=== PATIENT | male | born 1935 | race Caucasian/White ===

== ENCOUNTER → 2017-05-27 | Outpatient (CLI) | payer OTHER ==
[~2017-05-27] MED LIST: ACET-1138 PO; ALBU0.08 INH; ASPEC81 PO; ASPI-232 PO; CHOL100010 PO; CPR/500 PO; LEVO75TA5 PO; ONDA8TAB6 PO; POTA20TA16 PO; RED600TA PO; RXC5 PO; [UNRECOGNIZED DRUG - OTHER] PO
--- NOTE | 2017-05-27 13:15 | DIAGNOSTIC IMAGING REPORT ---
RIGHT LOWER EXTREMITY WITHOUT CT DOSE: 815.53 mGy.cm HISTORY: CT right hip RIGHT HIP PAIN Right TECHNIQUE: Multiaxial CT images of the right hip were performed and reformatted in the sagittal and coronal plane without the use of contrast. A dose lowering technique was utilized adhering to the principles of ALARA. COMPARISON: None. FINDINGS: Patient is status post total right hip arthroplasty. There is good contact between prosthetic and underlying bone. The acetabular prosthetic is intact. No evidence for cortical fracture dislocation. No evidence for acetabular protrusion. IMPRESSION: 1. Anatomic alignment status post total right hip arthroplasty. 2. No acute bony abnormality. The above report was generated using voice recognition software. It may contain grammatical, syntax or spelling errors. Electronically signed by: Hermelindo Stanford M.D. 05/27/2017 1:14 PM Dictated Date/Time: 05/27/2017 1:08 PM
== END | disposition home or self-care (01) ==
LOC: C.CTS 11:27
PROVIDERS: ATTEND Orthopaedic Surgery
DX: M25.551 Pain in right hip (principal)

== ENCOUNTER 2017-05-28 10:04 | Inpatient (IN) | payer OTHER ==
[2017-05-27 08:52] VITALS: BMI 26.0
--- NOTE | 2017-05-27 08:53 | HISTORY & PHYSICAL EXAMINATION ---
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 He has a valgus alignment with bone to bone changes, large osteophytes and subchondral sclerosis. He has failed attempts at conservative management including physical therapy, anti-inflammatories, relative rest, activity modification, previous corticosteroid injections as well as viscosupplementation. For 82 years old, he is in excellent health otherwise and presents for total knee arthroplasty after failing all attempts at conservative management. After extensive discussion regarding risks, complications, decision was made to proceed forward with total knee arthroplasty. PAST MEDICAL HISTORY: The patient denies history of hypertension, hypercholesterolemia, heart or lung abnormalities. The patient relates no alcohol, no smoking, and no recreational drug use. PAST SURGICAL HISTORY: Significant for total hip arthroplasty, right. ALLERGIES: RELATES ENVIRONMENTAL ALLERGIES WELL ALLERGIES TO XARELTO AND VALIUM. ALLERGIES ARE TO PENICILLIN, THIOPENTAL AND DIAZEPAM. MEDICATIONS: Include levothyroxine 75 mcg half a tablet p.o. daily. REVIEW OF SYSTEMS: Otherwise unremarkable. See history of present illness for pertinent positives. PHYSICAL EXAMINATION: GENERAL: This is a very pleasant 82-year-old white male, alert and oriented x3, in no acute distress. HEENT: Otherwise atraumatic, normocephalic. HEART: Regular at 72 beats per minute. No murmurs are noted. LUNGS: Clear without rales, rhonchi, or wheezes noted. ABDOMEN: Soft, nontender, nondistended. Bowel sounds are present in all 4 quadrants. RECTAL: No rectal examination performed. MUSCULOSKELETAL: He has had a bilateral knee DJD with the right knee being scheduled for total knee arthroplasty, valgus alignment, bone to bone changes, subchondral sclerosis, medial and lateral joint line pain, tenderness, as well as moderate effusion. ASSESSMENT AND PLAN: The patient presents for total knee arthroplasty, postoperative pain management, deep venous thrombosis prophylaxis, antibiotics.
--- NOTE | 2017-05-27 09:45 | PAT Medication Instructions ---
Service Date May 27, 2017. Current Home Medication List Aspirin (Aspirin EC Low Dose), 81 MG PO BID Aspirin (Aspir-81), 1 TAB PO QAM Cholecalciferol (Vitamin D), 2,000 INTERUNIT PO QAM Levothyroxine Sodium (Levothyroxine Sodium), 1 TAB PO SEE NOTES Potassium Ext Rel (Klor-Con), 10 MEQ PO QAM Red Yeast Rice Extract (Red Yeast Rice), 2 TAB PO QAM [Power Green ], 1 DOSE PO UD Medication Instructions For Your Scheduled Surgery - Hold the following medications the morning of surgery: [Power Green ], 1 DOSE PO UD Red Yeast Rice Extract (Red Yeast Rice), 2 TAB PO QAM Potassium Ext Rel (Klor-Con), 10 MEQ PO QAM Cholecalciferol (Vitamin D), 2,000 INTERUNIT PO QAM - Take the following medications the morning of surgery with a sip of water: Aspirin (Aspir-81), 1 TAB PO QAM (okay to continue per surgeon) Levothyroxine Sodium (Levothyroxine Sodium), 1 TAB PO SEE NOTES If you have any questions please call us at [phone] or [phone] or [phone]
[2017-05-27 10:34] LABS: BASO % 0.6 %; BASO ABS # 0.04 K/uL (0-0.2); COMPLETE YES; EOS % 2.7 %; HEMATOCRIT 43.7 % (42-52); IG% 0.2 %; LYMPH % 28.2 %; LYMPH ABS # 1.86 K/uL (1.2-3.4); MEAN CORPUSCULAR HEMOGLOBIN 31.2 pg (25-34); MEAN CORPUSCULAR HGB CONC 33.2 g/dl (32-36); MEAN PLATELET VOLUME 10.9 fL (7.4-10.4); MONO % 11.4 %; NEUT % 56.9 %; PLATELET COUNT 199 K/uL (130-400); RED BLOOD COUNT 4.65 M/uL (4.7-6.1); WHITE BLOOD COUNT 6.59 K/uL (4.8-10.8)
[2017-05-27 10:35] LABS: URINE APPEARANCE CLEAR (CLEAR); URINE BILIRUBIN NEG (NEG); URINE COLOR YELLOW; URINE NITRITE NEG (NEG); URINE SPECIFIC GRAVITY 1.014 (1.000-1.030); UROBILINOGEN NEG (NEG)
[2017-05-27 10:37] LABS: MANUAL MICROSCOPIC REQUIRED? NO; REVIEW REQ? NO
[2017-05-27 10:44] LABS: PROTHROMBIN TIME (PATIENT) 11.2 SECONDS (9.0-12.0)
--- NOTE | 2017-05-27 10:48 | DIAGNOSTIC IMAGING REPORT ---
CHEST PREADMISSION(PA/LAT) CLINICAL HISTORY: PAT preoperative evaluation COMPARISON STUDY: No previous studies for comparison. FINDINGS: The bones soft tissues and hemidiaphragms are normal. The cardiomediastinal silhouette is normal. The lungs are clear. The pulmonary vasculature is normal. IMPRESSION: Negative chest. The above report was generated using voice recognition software. It may contain grammatical, syntax or spelling errors. Electronically signed by: Hermelindo Stanford M.D. 05/27/2017 10:47 AM Dictated Date/Time: 05/27/2017 10:47 AM
[2017-05-27 11:14] LABS: BUN/CREATININE RATIO 19.3 (10-20); CALCIUM 9.1 mg/dl (8.5-10.1); CREATININE 0.84 mg/dl (0.60-1.40); POTASSIUM 3.7 mmol/L (3.5-5.1)
[2017-05-27 11:18] LABS: ESTIMATED AVERAGE GLUCOSE 108 mg/dl; HA1C FLAG Normal (Normal)
[2017-05-28] VITALS (7 sets, daily range): BP systolic 114–134; BP diastolic 66–76; PULSE 64–78; TEMP 36.5–36.8; O2SAT 93–97; Ht 175.3 cm; Wt 82.6 kg
[~2017-05-28] VITALS: Ht 175.3 cm; Wt 82.6 kg
--- NOTE | 2017-05-28 08:08 | History & Physical Bridge Note ---
H&P Re-Evaluation Bridge Note: I have examined the patient, reviewed the History & Physical and in the interval since the performance of the History & Physical I have noted the following changes of clinical significance: No changes noted
[~2017-05-28 10:04] MED LIST changes: -ACET-1138 PO; +ACETAMINOPHEN 500 MG TAB PO SCH; -ALBU0.08 INH; -ASPEC81 PO; +ATROPINE SULFATE 0.1 MG/ML 5ML SYR IV PRN; +BUPIVACAINE 0.25% 30 ML VIAL ONE; +BUPIVACAINE 0.5 % 5 MG/1 ML PF 10ML VIAL ONE; -CPR/500 PO; +CeleBREX 200 MG CAP PO SCH; +DEXAMETHASONE 4 MG TAB PO SCH; +EpHEDrine SULFATE INJ 50 MG/ML AMP IV PRN; +FAMOTIDINE 20 MG TAB PO SCH; +GABAPENTIN 300 MG CAP PO SCH; +LACTATED RINGER'S 1000ML 1,000 ML IV SCH; +LACTATED RINGER'S 1000ML IV SCH; +METOCLOPRAMIDE HCL 10 MG TAB PO SCH; -ONDA8TAB6 PO; +ONDANSETRON INJ 2 MG/ML 2 ML VIAL IV PRN; +ROPIVACAINE 5MG/ML 30 ML 150 MG, BUPIVACAINE/EPINEPHR 0.5% MPF 30 ML, KETOROLAC TROMETH... INFIL SCH; -RXC5 PO; +VANCOMYCIN INJ 1,250 MG in SODIUM CHLORIDE 0.9% 250ML 250 ML IV SCH
[2017-05-28] MEDS ORDERED: FENTANYL CITRATE INJ 50 MCG/1 ML 2 ML VIAL ONE (11:40)
[2017-05-28] MEDS ORDERED: MIDAZOLAM HCL 1 MG/ML 2ML VIAL ONE (11:40)
[2017-05-28] MEDS ORDERED: ORTHO JOINT ANESTHETIC ONE (12:57)
[2017-05-28] MEDS ORDERED: BACITRACIN 50000 UNIT VIAL ONE (12:57)
[2017-05-28] MEDS ORDERED: POVIDONE-IODINE OP SOLN 30 ML BTL ONE (12:57)
[2017-05-28] MEDS ORDERED: PROPOFOL IV EMULSION 10 MG/ML 20 ML VIAL IV ONE (13:33)
--- NOTE | 2017-05-28 14:21 | [facility] Operative Report ---
Operative Report Operative Date May 28, 2017. Pre-Operative Diagnosis Right knee degenerative joint disease Post-Operative Diagnosis Right knee degenerative joint disease Procedure(s) Performed Right total knee arthroplasty using [employer] journey to non-block total knee arthroplasty size 7 femur 7 tibia Poly-[address] Yepez Spiritual Counselor Surgeon(s) Hannah Flores PA-C Estimated Blood Loss 5 mL Findings Severe end-stage tricompartmental degenerative joint disease with valgus alignment Specimens A: right knee bone and tissue Complication(s) None Disposition Recovery Room / PACU Indications Patient presents with severe end-stage tricompartmental degenerative joint disease banal response to conservative therapy Terrance for total knee arthroplasty after failing attempts at conservative management with home patient is amends discussed preoperatively. Description of Procedure After proper prepping and draping of the Right lower extremity anterior midline incision was made over the region of the extensor extensor mechanism after meticulous hemostasis was obtained and maintained in subcutaneous tissues a medial parapatellar incision was made The patella was subluxed lateralward the medial lateral gutter were cleaned from any hypertrophic synovitis and scar tissue of the distal femoral block was placed and the distal femoral osteotomy cut was made subsequently the chamfers anterior and posterior osteotomy cuts were made utilizing the 4-in-1 block the tibia was subsequently subluxed anteriorward medial and ateral meniscal remnants were excised in their entirety remnants of the anterior and posterior cruciate ligaments were excised in their entirety excellent exposure of the proximal tibia was obtained the tibial osteotomy guide was placed on the proximal tibial osteotomy cut was made once again the knee was irrigated with copious amounts of sterile saline solution the patella was subsequently everted lateralward thickened scar tissue around the patella was removed the patella was subsequently cut utilizing a freehand technique and was drilled prepared for final preparation and placement of patella socially flexion-extension gaps were checked and the equal and symmetric trials were placed to the appropriate femoral and tibial trials with poly-spacer being placed for equal flexion and extension gaps and full range of motion including extension to 0 and flexion to 140 the trial components after having been taken to recovery range of motion was subsequently removed meticulous hemostasis was obtained and maintained subsequently a knee block injection of joint cocktail including ropivacaine 0.5% 150 mg. Bupivacaine 0.5 % epinephrine 1-200,030 mL's toradol 30 mg dexamethasone 4 mg ketamine 10 mg clonidine 100 micrograms normal saline solution 30 mg was infiltrated into the soft tissues of the posterior knee medial lateral gutters and periosteal synovium special attention was paid to protect neurovascular structures at all times subsequently trial components having been removed the knee was irrigated with sterile saline solution. debris was removed the proximal tibia was subsequently prepared and was made ready for the placement of the tibial component tibial component was also cemented and tamped into position the femoral component was subsequently placed and cemented in the position the patellar component was subsequently cemented in position because hemostasis once again obtained and maintained wound having been thoroughly irrigated with debridement and debridement lavage was performed as well as a medial parapatellar incision closed with #1 Vicryl in interrupted fashion subcutaneous was closed with #2 Vicryl skin was closed with skin clips. PA-C was necessary for prepping and drapping as well as wound closure of deep fascia Sub cutaneous tissue and skin and was necessary for the case. A sterile compressive dressing was placed patient was taken to recovery in stable condition of report dictated by Lucho I attest to the content of the Intraoperative Record and any orders documented therein. Any exceptions are noted below. I attest to the content of the Intraoperative Record and any orders documented therein. Any exceptions are noted below.
[2017-05-28] MEDS ORDERED: MAGNESIUM HYDROXIDE SUSP 30 ML UDC PO PRN (15:00)
[2017-05-28] MEDS ORDERED: ALUMINUM/MAGNESIUM/SIMETH (MAALOX MAX) 30 ML UDC PO PRN (15:00)
[2017-05-28] MEDS ORDERED: ZOLPIDEM TARTRATE 5 MG TAB PO PRN (15:00)
[2017-05-28] MEDS ORDERED: OXYCODONE HCL IR 5 MG TAB (IMMEDIATE RELEASE) PO PRN (15:00)
[2017-05-28] MEDS ORDERED: ONDANSETRON INJ 2 MG/ML 2 ML VIAL IV PRN (15:00)
[2017-05-28] MEDS ORDERED: SOD PHOSPHATE/SOD BIPHOSPHATE ENEMA 132 ML BTL PR PRN (15:00)
[2017-05-28] MEDS ORDERED: BISACODYL 10 MG SUPP PR PRN (15:00)
--- NOTE | 2017-05-28 15:01 | Anesthesiology Progress Note ---
Anesthesia Post Op Note Date & Time May 28, 2017 at 15:01 Vital Signs Pain Intensity: 0 Vital Signs Past 12 Hours Date Time Temp Pulse Resp B/P (MAP) Pulse Ox O2 Delivery O2 Flow Rate FiO2 05/28/17 15:00 70 18 110/65 96 Nasal Cannula 2 05/28/17 14:51 36.4 75 14 106/63 96 Room Air 05/28/17 10:46 36.8 78 20 96 Room Air Notes Mental Status: alert / awake / arousable, participated in evaluation Pt Amnestic to Procedure: Yes Nausea / Vomiting: adequately controlled Pain: adequately controlled Airway Patency, RR, SpO2: stable & adequate BP & HR: stable & adequate Hydration State: stable & adequate Neuraxial Anesthesia: was administered, sensory block is resolving Anesthetic Complications: no major complications apparent
--- NOTE | 2017-05-28 15:19 | DIAGNOSTIC IMAGING REPORT ---
TWO VIEWS RIGHT KNEE CLINICAL HISTORY: Postoperative examination. FINDINGS: AP and crosstable lateral portable views of the right knee are obtained. A right knee arthroplasty is in near anatomic alignment. There has been undersurface remodeling of the patella. No acute fracture is seen. There are expected postoperative changes around the knee including a surgical drain, soft tissue edema, and subcutaneous gas. Atherosclerotic calcification is noted in the popliteal artery. IMPRESSION: Expected postoperative changes status post right knee arthroplasty. No acute fracture is seen. Electronically signed by: Dallas Guthrie M.D. 05/28/2017 3:17 PM Dictated Date/Time: 05/28/2017 3:17 PM
[2017-05-28] MEDS: D5W AND 1/2NSS + 20MEQ KCL 1,000 ML IV SCH (17:01)
[2017-05-28] MEDS: CLINDAMYCIN IV 600 MG in DEXTROSE 5% 50ML 50 ML IV SCH (18:47)
[2017-05-28] MEDS: KETOROLAC TROMETHAMINE 15 MG/ML VIAL IV. SCH ×2 (18:47→23:54)
[2017-05-28] MEDS: ASPIRIN 81 MG ECTAB PO SCH (21:33)
[2017-05-28] MEDS: ACETAMINOPHEN 500 MG TAB PO SCH (21:33)
[2017-05-28] MEDS: SENNA 8.6 MG TAB PO SCH (21:33)
[2017-05-29] VITALS (8 sets, daily range): BP systolic 127–160; BP diastolic 70–83; PULSE 61–85; TEMP 36.4–37.1; O2SAT 96–99
[2017-05-29] MEDS: D5W AND 1/2NSS + 20MEQ KCL 1,000 ML IV SCH ×2 (02:25→12:19)
[2017-05-29] MEDS: CLINDAMYCIN IV 600 MG in DEXTROSE 5% 50ML 50 ML IV SCH (02:26)
[2017-05-29] MEDS: ACETAMINOPHEN 500 MG TAB PO SCH ×3 (05:43→21:17)
[2017-05-29] MEDS: LEVOTHYROXINE 75 MCG TAB PO SCH (05:43)
[2017-05-29] MEDS: KETOROLAC TROMETHAMINE 15 MG/ML VIAL IV. SCH ×2 (05:43→12:21)
[2017-05-29 06:16] LABS: HEMATOCRIT 36.7 % (42-52); MEAN CELL VOLUME 93.6 fL (80-100); MEAN CORPUSCULAR HEMOGLOBIN 31.1 pg (25-34); MEAN CORPUSCULAR HGB CONC 33.2 g/dl (32-36); MEAN PLATELET VOLUME 10.8 fL (7.4-10.4); PLATELET COUNT 176 K/uL (130-400); RED BLOOD COUNT 3.92 M/uL (4.7-6.1); WHITE BLOOD COUNT 16.67 K/uL (4.8-10.8)
[2017-05-29] MEDS ORDERED: DEXAMETHASONE 4 MG TAB PO SCH (07:30)
[2017-05-29 07:54] LABS: BUN/CREATININE RATIO 17.2 (10-20); CALCIUM 8.6 mg/dl (8.5-10.1); CREATININE 0.85 mg/dl (0.60-1.40); POTASSIUM 4.6 mmol/L (3.5-5.1)
--- NOTE | 2017-05-29 07:56 | Orthopedic Progress Note ---
Orthopedic Progress Note Date of Service May 29, 2017. Subjective Post OP Day: 1 Reports: feeling well, Denies: chest pain, SOB, nausea / vomiting, light headedness, calf pain Additional Notes: Sitting at bedside. No complaints. Pain controlled. Objective calves soft nontender, N/V intact, dressing C/D/I, A&O x3, toes mobile, hemovac drainage (100ml latest shift) Date Time Temp Pulse Resp B/P (MAP) Pulse Ox O2 Delivery O2 Flow Rate FiO2 05/29/17 05:45 97 Room Air 05/29/17 03:10 36.4 63 16 158/77 (104) 99 Nasal Cannula 2.0 05/29/17 00:05 36.4 61 18 160/83 (108) 99 Nasal Cannula 2.0 05/28/17 23:50 Nasal Cannula 2.0 05/28/17 18:58 64 122/72 (89) 05/28/17 17:45 71 134/76 (95) 05/28/17 16:45 68 126/67 (86) 97 Nasal Cannula 2.0 05/28/17 16:15 36.5 68 14 114/66 (82) 97 Nasal Cannula 2.0 05/28/17 16:15 93 Nasal Cannula 2.0 05/28/17 16:10 93 Nasal Cannula 2.0 05/28/17 15:45 36.6 71 14 115/67 (83) 93 Nasal Cannula 2.0 05/28/17 15:40 62 16 100/55 97 Nasal Cannula 2 05/28/17 15:30 64 18 102/59 98 Nasal Cannula 2 05/28/17 15:20 36.4 64 18 101/63 98 Nasal Cannula 2 05/28/17 15:10 65 18 112/63 95 Nasal Cannula 2 05/28/17 15:00 70 18 110/65 96 Nasal Cannula 2 05/28/17 14:51 36.4 75 14 106/63 96 Room Air 05/28/17 10:46 36.8 78 20 96 Room Air Laboratory Results 24 Hours: Test 05/29/17 05:54 Hematocrit 36.7 % Hemoglobin 12.2 g/dL Assessment & Plan Assessment: POD 1 s/p Right TKA Plan: PT/OT Planning for [facility]. Will need a 3 day stay prior to dc. Inhouse Planning Pain Management: Toradol, PO Tylenol, Oxy IR DVT Prophylaxis: TEDs, SCDs, ASA Discharge Planning [facility] facility Pain Management: PO Tylenol, Oxy IR DVT Prophylaxis: TEDs, ASA Therapy: Physical Therapy
[2017-05-29] MEDS: ASPIRIN 81 MG ECTAB PO SCH ×2 (08:40→21:16)
[2017-05-29] MEDS: MULTIVITAMIN TAB PO SCH (08:41)
[2017-05-29] MEDS: PANTOprazole SOD 40 MG TAB PO SCH (08:41)
[2017-05-29] MEDS: POTASSIUM CHLORIDE 10 MEQ TABCR PO SCH (08:41)
[2017-05-29] MEDS: SENNA 8.6 MG TAB PO SCH (21:00)
[2017-05-30] VITALS (7 sets, daily range): BP systolic 128–165; BP diastolic 72–84; PULSE 64–74; TEMP 36.5–37.1; O2SAT 98–100
[2017-05-30] MEDS: LEVOTHYROXINE 75 MCG TAB PO SCH (05:35)
[2017-05-30] MEDS: ACETAMINOPHEN 500 MG TAB PO SCH ×3 (05:36→21:31)
[2017-05-30] MEDS: PANTOprazole SOD 40 MG TAB PO SCH (08:15)
[2017-05-30] MEDS: MULTIVITAMIN TAB PO SCH (08:15)
[2017-05-30] MEDS: POTASSIUM CHLORIDE 10 MEQ TABCR PO SCH (08:15)
[2017-05-30] MEDS: ASPIRIN 81 MG ECTAB PO SCH ×2 (08:59→21:31)
--- NOTE | 2017-05-30 10:11 | Orthopedic Progress Note ---
Orthopedic Progress Note Date of Service May 30, 2017. Subjective Post OP Day: 2 Reports: feeling well, pain controlled w PO medications, Denies: complaints Additional Notes: No new complaints. Objective calves soft nontender, N/V intact, incision C/D/I, A&O x3, toes mobile Date Time Temp Pulse Resp B/P (MAP) Pulse Ox O2 Delivery O2 Flow Rate FiO2 05/30/17 07:58 36.6 70 16 138/78 (98) 98 Room Air 05/30/17 07:42 98 Room Air 05/30/17 07:20 Room Air 05/30/17 07:03 36.5 73 16 165/84 (111) 98 Room Air 05/29/17 23:29 Room Air 05/29/17 23:00 36.6 72 18 127/72 (90) 97 Room Air 05/29/17 15:55 Room Air 05/29/17 15:07 37.1 85 18 137/70 (92) 96 Room Air 05/29/17 12:10 36.5 83 18 141/82 (101) 96 Room Air Assessment & Plan Assessment: POD 2 s/p Right TKA Plan: PT/OT Planning for [facility]. Will need a 3 day stay prior to dc. Plan for dc Saturday Inhouse Planning Pain Management: Toradol, PO Tylenol, Oxy IR DVT Prophylaxis: TEDs, SCDs, ASA Discharge Planning Discharge Planning: halfway facility Pain Management: PO Tylenol, Oxy IR DVT Prophylaxis: TEDs, ASA Therapy: Physical Therapy
--- NOTE | 2017-05-30 10:17 | Discharge Instructions ---
Discharge Instructions Date of Service May 30, 2017. Admission Reason for Admission: Right Knee Osteoarthritis Discharge Discharge Diagnosis / Problem: Right Knee Djd Discharge Goals Goal(s): Decrease discomfort, Improve function Activity Recommendations Activity Level: Up Ad [place] Therapies: Physical Therapy (TKA Protocol), Occupational Therapy (ADL's and transfers) Weightbearing Status: Right weightbearing (as tolerated) . Additional Information Patient informed of condition: Yes Advance Directives: No DNR: No Level of Care: Skilled Communicable Disease: No Prognosis: Stable Boo Catheter: No Instructions / Follow-Up Instructions / Follow-Up ACTIVITY RECOMMENDATIONS: SELF CARE INSTRUCTIONS AFTER TOTAL KNEE REPLACEMENT A. You may need to continue a physical therapy program after discharge from the hospital. There are several options available to you. Your doctor will assist you in selecting the best one for you. 1. An out-patient facility 2 to 3 times a week for therapy or home therapy. 2. Continue working on all exercises taught to you in the hospital. Your goals should be to increase bending of your knee to 90 degrees and beyond and to fully straighten your knee. B. You may progress at your own pace from walking with a walker or crutches to a cane; then to no assistive devices. C. Make walking a part of your daily routine. Be up as much as comfortable with rest periods throughout the day. Rest with leg elevation is very important. Use the ice wrap frequently for the first 3-4 weeks. D. There are no restrictions on activities. You may ride in a car, shop, participate in welder plastic and all social activities. E. Wear the long elastic stockings (JOJO hose) 20 hours a day for 2 weeks after surgery. They can be removed several times a day for laundering and for a bath. F. You may shower, no tub baths until cleared by your doctor. SPECIAL CARE INSTRUCTIONS: VERY IMPORTANT TO READ AND REVIEW A. There are a few signs you need to watch for after you are home. Call [facility] [place] if you notice any of the followin. Increased severe knee pain. Some pain is expected especially when you exercise. 2. Increased swelling in your leg or knee; pain or swelling of the calf muscle in either lower leg. 3. Any fluid drainage from the incision. 4. Shortness of breath or chest pain. B. Please call [facility] at if you have any concerns or questions about your operation or recovery. The doctor or his nurse will return your call promptly. C. You must take antibiotics before dental work, bladder, bowel or other surgery. Your doctor will provide you with a permanent care to carry describing this precaution. IMPORTANT: * REMEMBER TO TAKE ASPIRIN, 81 MG, TWICE DAILY FOR 4 WEEKS UNLESS OTHERWISE DIRECTED. THIS IS YOUR BLOOD THINNER. * HIGH RISK PATIENTS MAY BE PRESCRIBED A STRONGER BLOOD THINNER. THIS WILL BE PROVIDED AT DISCHARGE. * CALL IF INCREASED PAIN, REDNESS, DRAINAGE OR FEVER GREATER THAT 101. * WEAR JOJO HOSE 20 HOURS PER DAY FOR 2 WEEKS. * DERMABOND Prineo- This is a mesh tape dressing that is covered with glue. It should remain in place until the incision is properly healed, usually 10-14 days. This dressing is designed to naturally slough off. You may trim the excess mesh tape as it peels off. Incision may be briefly wet in a shower. Dry immediately by blotting with a clean, dry towel. Do not bath or swim until instructed by your doctor. Do not scratch, rub, or pick at the dressing. Do not apply any topical ointments or lotions until dressing is completely removed and/or instructed by your doctor. There may be a small piece of suture material at one end of your incision. Do not pull or trim this. If it is bothersome or catching on clothing, you may cover it with a band-aid. . FOLLOW UP VISIT: If appointment is not already scheduled: Please call [facility] [place] to make a follow-up appointment for 2 weeks after your surgery at . Current Hospital Diet Patient's current hospital diet: Regular Diet Discharge Diet Recommended Diet: Regular Diet Procedures Procedures Performed: Right total knee arthroplasty using AdSpar[employer] journey to non-block total knee arthroplasty size 7 femur 7 tibia Poly-32 oval patella Pending Studies Studies pending at discharge: no Physician Orders On Transfer Dressing Changes: Daily prn. See Dermabond/Prineo instructions as noted above Vital Signs: routine Laboratory Results Hemoglobin A1c Test 05/27/17 10:07 Range/Units Estimated Average Glucose 108 mg/dl Hemoglobin A1c 5.4 4.5-5.6 % Medical Emergencies . Who to Call and When: Medical Emergencies: If at any time you feel your situation is an emergency, please call 911 immediately. . Non-Emergent Contact Non-Emergency issues call your: Surgeon Call Non-Emergent contact if: temperature is above 101.5, your pain is not controlled, your pain is worsening, wound has increased drainage, wound has increased redness . . "Provider Documentation" section prepared by Dany Resendez. . Core Measure Problem Core Measures: None [place] Drug Monitoring Program Search Results: patient reviewed within database, no issues identified
[2017-05-30] MEDS: SENNA 8.6 MG TAB PO SCH ×2 (21:00→21:31)
[2017-05-31] MEDS: LEVOTHYROXINE 75 MCG TAB PO SCH (05:58)
[2017-05-31] MEDS: ACETAMINOPHEN 500 MG TAB PO SCH (05:59)
[2017-05-31 06:22] VITALS: BP 158/78; PULSE 75; TEMP 37.2; O2SAT 97
[2017-05-31] MEDS: ASPIRIN 81 MG ECTAB PO SCH (07:47)
[2017-05-31] MEDS: MULTIVITAMIN TAB PO SCH (07:47)
[2017-05-31] MEDS: POTASSIUM CHLORIDE 10 MEQ TABCR PO SCH (07:47)
[2017-05-31] MEDS: PANTOprazole SOD 40 MG TAB PO SCH (07:47)
[2017-05-31 08:51] VITALS: BP 158/78; PULSE 75; TEMP 37.2; O2SAT 97
--- NOTE | 2017-05-31 09:31 | Orthopedic Progress Note ---
Orthopedic Progress Note Date of Service May 31, 2017. Subjective Post OP Day: 3 Reports: feeling well (States the knee is a little stiff today but he had recently completed PT.), pain controlled w PO medications, Denies: chest pain, SOB, light headedness, calf pain Objective calves soft nontender, N/V intact, capillary refill less than 2 sec., incision C /D/I, A&O x3, toes mobile Date Time Temp Pulse Resp B/P (MAP) Pulse Ox O2 Delivery O2 Flow Rate FiO2 05/31/17 08:51 37.2 75 16 97 Room Air 05/31/17 07:10 Room Air 05/31/17 06:22 37.2 75 16 158/78 (104) 97 Room Air 05/31/17 00:20 Room Air 05/30/17 23:00 37.1 74 16 150/73 (98) 99 Room Air 05/30/17 16:00 Room Air 05/30/17 15:41 36.7 64 18 137/77 (97) 100 Room Air 05/30/17 12:13 36.5 70 16 128/72 (90) 98 Room Air Assessment & Plan Assessment: POD 3 s/p Right TKA Plan: PT/OT Planning for [facility]. Plan for d/c later today. Inhouse Planning Pain Management: Toradol, PO Tylenol, Oxy IR DVT Prophylaxis: JOJOs, SCDs, ASA Discharge Planning Discharge Planning: detention facility Pain Management: PO Tylenol, Oxy IR DVT Prophylaxis: TEDs, ASA Therapy: Physical Therapy
[2017-05-31] MEDS ORDERED: ASPEC81 PO (09:38)
[2017-05-31] MEDS ORDERED: ACET-1138 PO (09:38)
[2017-05-31] MEDS ORDERED: RXC5 PO (09:38)
[2017-05-31] MEDS ORDERED: ONDA8TAB6 PO (09:38)
--- NOTE | 2017-06-07 09:05 | DISCHARGE SUMMARY ---
DISCHARGE DIAGNOSIS: Degenerative joint disease, right knee. SECONDARY DIAGNOSIS: None. CONSULTS: None. COMPLICATIONS: None. PROCEDURE: The patient underwent a right total knee arthroplasty by Dr. Yepez on 05/28/2017. BRIEF HISTORY: Please see previously dictated history and physical. HOSPITAL SUMMARY: The patient was admitted on the above day for the above procedure. Procedure went without complication. Postop day 1, the patient was feeling well without complaints. He denied chest pain or shortness of breath. Vital signs were stable. He was afebrile. Dressing was clean, dry and intact. He was neurovascularly intact. Calves were soft and nontender. Hemovac drained 100 mL. Hemoglobin was 12.2. The patient began physical therapy per protocol and was referred to [facility] requiring a 3-day stay. Postop day 2, the patient continued to improve. He denied chest pain or shortness of breath. Vital signs were stable. He was afebrile. Dressing was clean, dry and intact. He was neurovascularly intact. Calves were soft and nontender. He continued to progress with therapy. Postop day 3, the patient stated he was a little stiff today but had recently completed PT. Vital signs were stable. He was afebrile. Dressing was clean, dry and intact. He was neurovascularly intact. Calves were soft and nontender. The patient progressed with therapy. He was discharged to [facility] later that day in stable condition. For further review please see the chart. Lab, x-ray data and discharge instructions as per chart.
== END 2017-05-31 13:25 | DRG 470 ==
LOC: C.ACU 10:04 → C.3E 12:30 → ENRESERV 15:25
PROVIDERS: ADMIT Orthopaedic Surgery; ATTEND Orthopaedic Surgery
PROC: 0SRC0J9 Replacement of Right Knee Joint with Synthetic Substitute, Cemented, Open Approach (ICD-10-PCS; principal; 2017-05-28 13:00)
DX: M17.11 Unilateral primary osteoarthritis, right knee (principal); Z79.899 Other long term (current) drug therapy; Z88.4 Allergy status to anesthetic agent; Z88.0 Allergy status to penicillin; Z88.8 Allergy status to other drugs, medicaments and biological substances; M25.551 Pain in right hip

== ENCOUNTER 2017-09-17 05:09 | Inpatient (IN) | payer OTHER ==
[2017-09-02 14:59] VITALS: BMI 26.0
--- NOTE | 2017-09-10 08:16 | History and Physical ---
History & Physical Date Sep 10, 2017. Chief Complaint left knee pain History of Present Illness Mr Dee is a 82 year old male who complains of left knee pain for several years now which has failed conservative measures, including PO NSAIDs and visco injections. He states that the symptoms have been chronic non-traumatic. He indicates the injury occurred at unknown location. Luis F states that the symptoms began as the result of unknown injury. The symptoms occur constantly. The problem is fluctuating. Currently the patient states that the symptoms are mild-moderate. The pain is described as aching and discomforting. The symptoms occur continuously. The patient is experiencing pain in the following location: entire knee region on the left side. He rates his current pain as 4/10. recently underwent right TKA and is doing well. Past Medical/Surgical History Medical Problems: (1) Arthritis (2) Asthma (3) Colitis (4) Hypercholesteremia (5) Hypothyroidism (6) Prostate cancer (7) Right TKA May 2017 Allergies Coded Allergies: Cantaloupe (Verified Allergy, Severe, ANAPHYLAXIS, 09/02/17) Diazepam (Verified Allergy, Severe, ANAPHYLAXIS, 09/02/17) Mustard (Verified Allergy, Severe, ANAPHYLAXIS, 09/02/17) Onion (Verified Allergy, Severe, ANAPHYLAXIS, 09/02/17) Peanut (Verified Allergy, Severe, ANAPHYLAXIS, 09/02/17) Penicillin V (Verified Allergy, Severe, HIVES, 09/02/17) Tomato (Verified Allergy, Severe, anaphylaxis, 09/02/17) Statins (Verified Allergy, Intermediate, leg weakness, 09/02/17) Chocolate (Verified Allergy, Unknown, ANAPHYLAXIS, 09/02/17) Food (Verified Allergy, Unknown, PEAS,GARRETT BEANS-ANAPHYLAXIS, 09/02/17) POLLEN (Verified Allergy, Unknown, SHORTNESS OF BREATH, 09/02/17) cats,horses,grasses,tree,smoke,tobacco Morehouse (Verified Allergy, Unknown, ANAPHYLAXIS, 09/02/17) Penicillins (Verified Allergy, Unknown, RASH, 09/02/17) Procaine (Verified Allergy, Unknown, localized swelling, dyspnea, hives, 09/02/17) Rivaroxaban (Verified Allergy, Unknown, EXCESSIVE BLEEDING, 09/02/17) Sulfa Antibiotics (Verified Allergy, Unknown, rash and fever, 09/02/17) Home Medications Scheduled Aspirin (Aspirin Ec), 81 MG PO QAM Cholecalciferol (Vitamin D), 2,000 INTERUNIT PO QAM Levothyroxine Sodium (Levothyroxine Sodium), 0.5 TAB PO QAM Potassium Ext Rel (Klor-Con), 10 MEQ PO QAM Red Yeast Rice Extract (Red Yeast Rice), 2 TAB PO QAM [Power Green ], 1 DOSE PO QAM Scheduled PRN Oxycodone Ir (Roxicodone Ir), 5 MG PO Q4H PRN for Severe Pain Physical Examination Skin: warm/dry, no rash Eyes: normal inspection, EOMI, sclerae normal ENT: normal ENT inspection, pharynx normal Head: normocephalic, atraumatic Neck: supple, no adenopathy, trachea midline Respiratory/Chest: lungs clear, normal breath sounds, no respiratory distress Cardiovascular: regular rate, rhythm, no edema, no murmur Abdomen / GI: normal bowel sounds, non tender Addiitonal Comments: Physical Exam Exam Findings Details Knee ROM L * Active ROM - Flexion: 100 degrees, Extension: 5 degrees, Factors: normal, Description: active pain free range of motion. Passive ROM - Factors: normal, Description: passive pain free range of motion. Knee ROM R * Active ROM - Flexion: 115 degrees, Extension: 0 degrees, Factors: normal, Description: active pain free range of motion. Passive ROM - Factors: normal, Description: passive pain free range of motion. Strength LE Normal Strength Description - Normal lower extremity: Bilateral. Knee * Inspection - Gait: normal. Alignment - Right: neutral, Left: varus. Ecchymosis - Right: none, Left: none. Effusion - Right: negative, Left: negative. Skin - Right: surgical scars. Swelling - Right: mild, Left: none. Flexibility - Right: normal, Left: normal. Maximum tenderness - Right: non- tender, Left: diffuse. Patella exam - Crepitation - Right: negative, Left: negative. Patella position - Right: neutral, Left: neutral. Tilt - Right: normal , Left: normal. [facility]'s - lateral - Left: Positive. Miguel A's - medial - Left: Positive. Knee Normal Inspection - Atrophy - Right: Absent, Left: Absent. Skin - Left: Normal. Patella exam - Apprehension - Right: Negative, Left: Negative. Valgus stress - Right: Negative, Left: Negative. Varus stress - Right: Negative, Left: Negative. Extensor lag - Right: Normal, Left: Normal. Neurovascular LE Normal Neurovascular examination including reflexes, sensation , and pulses is within normal limits. Left Knee X-ray: degenerative joint disease including joint space narrowing, subchondral sclerosis, osteophyte formation. valgus alignment. no acute bony pathology. Diagnosis Left knee DJD Further care discussed with patient and at this point in time has failed conservative measures and would like to proceed with a left total knee replacement. Plan on discharge will be home with home health physical therapy. DVT prophalaxis with TEDs, SCDs and will also place on aspirin 81 mg p.o. b.i.d. for a month postop. Patient will have follow up appointment in our office two weeks post op for staple/suture removal and re-evaluation. Patient otherwise has no other questions or concerns.
[~2017-09-17] VITALS: Ht 175.3 cm; Wt 80.9 kg
[2017-09-17] VITALS (9 sets, daily range): BP systolic 117–217; BP diastolic 66–131; PULSE 59–99; TEMP 36.1–36.7; O2SAT 97–100; Ht 175.3 cm; Wt 80.9 kg
[~2017-09-17 05:09] MED LIST changes: -ACETAMINOPHEN 500 MG TAB PO SCH; -ASPI-232 PO; +ASPI81TA28 PO; -ATROPINE SULFATE 0.1 MG/ML 5ML SYR IV PRN; -BUPIVACAINE 0.25% 30 ML VIAL ONE; -BUPIVACAINE 0.5 % 5 MG/1 ML PF 10ML VIAL ONE; -CeleBREX 200 MG CAP PO SCH; -DEXAMETHASONE 4 MG TAB PO SCH; -EpHEDrine SULFATE INJ 50 MG/ML AMP IV PRN; -FAMOTIDINE 20 MG TAB PO SCH; -GABAPENTIN 300 MG CAP PO SCH; -LACTATED RINGER'S 1000ML 1,000 ML IV SCH; -LACTATED RINGER'S 1000ML IV SCH; -METOCLOPRAMIDE HCL 10 MG TAB PO SCH; -ONDANSETRON INJ 2 MG/ML 2 ML VIAL IV PRN; +OXYC1TAB3 PO; -ROPIVACAINE 5MG/ML 30 ML 150 MG, BUPIVACAINE/EPINEPHR 0.5% MPF 30 ML, KETOROLAC TROMETH... INFIL SCH; -VANCOMYCIN INJ 1,250 MG in SODIUM CHLORIDE 0.9% 250ML 250 ML IV SCH
[2017-09-17] MEDS ORDERED: CeleBREX 200 MG CAP PO SCH (06:00)
[2017-09-17] MEDS ORDERED: GABAPENTIN 300 MG CAP PO SCH (06:00)
[2017-09-17] MEDS ORDERED: LACTATED RINGER'S 1000ML 1,000 ML IV SCH (06:00)
[2017-09-17] MEDS ORDERED: ACETAMINOPHEN 500 MG TAB PO SCH (06:00)
[2017-09-17] MEDS ORDERED: FAMOTIDINE 20 MG TAB PO SCH (06:00)
[2017-09-17] MEDS ORDERED: ROPIVACAINE 5MG/ML 30 ML 150 MG, BUPIVACAINE 0.5% MPF INJ 30 ML, EpINEphrine HCL INJ 0.... INFIL SCH ×8 (06:00)
[2017-09-17] MEDS ORDERED: LACTATED RINGER'S 1000ML IV SCH (06:00)
[2017-09-17] MEDS ORDERED: CLINDAMYCIN 600 MG/54 ML D5W IV SCH (06:00)
[2017-09-17] MEDS ORDERED: DEXAMETHASONE 4 MG TAB PO SCH (06:00)
[2017-09-17] MEDS ORDERED: CEFAZOLIN 2000MG IV PUSH 10 ML IV SCH (06:00)
[2017-09-17] MEDS ORDERED: METOCLOPRAMIDE HCL 10 MG TAB PO SCH (06:00)
[2017-09-17] MEDS ORDERED: BUPIVACAINE 0.25% 30 ML VIAL ONE (06:20)
[2017-09-17] MEDS ORDERED: BUPIVACAINE 0.5 % 5 MG/1 ML PF 10ML VIAL ONE (06:20)
[2017-09-17] MEDS ORDERED: DEXAMETHASONE SOD INJ 4 MG/ML VIAL ONE (06:21)
[2017-09-17] MEDS ORDERED: EpINEphrine INJ 1MG/ML AMP 1 MG/ML AMP ONE (06:21)
[2017-09-17] MEDS ORDERED: PROPOFOL IV EMULSION 10 MG/ML 20 ML VIAL IV ONE (06:25)
[2017-09-17] MEDS ORDERED: FENTANYL CITRATE INJ 50 MCG/1 ML 2 ML VIAL ONE (06:25)
[2017-09-17] MEDS ORDERED: MIDAZOLAM HCL 1 MG/ML 2ML VIAL ONE (06:25)
[2017-09-17] MEDS: TRANEXAMIC ACID INJ 1,000 MG in SYRINGE 0 ML IV SCH (06:30)
[2017-09-17] MEDS ORDERED: CLINDAMYCIN 600 MG/54 ML D5W IV ONE (06:53)
[2017-09-17] MEDS ORDERED: ORTHO JOINT ANESTHETIC ONE (06:58)
[2017-09-17] MEDS ORDERED: BACITRACIN 50000 UNIT VIAL ONE (06:59)
[2017-09-17] MEDS ORDERED: POVIDONE-IODINE OP SOLN 30 ML BTL ONE (06:59)
[2017-09-17] MEDS ORDERED: EpHEDrine SULFATE INJ 50 MG/ML AMP IV PRN (07:00)
[2017-09-17] MEDS ORDERED: ATROPINE SULFATE 0.1 MG/ML 5ML SYR IV PRN (07:00)
[2017-09-17] MEDS ORDERED: ONDANSETRON INJ 2 MG/ML 2 ML VIAL IV PRN ×2 (07:00→09:00)
--- NOTE | 2017-09-17 08:18 | [facility] Operative Report ---
Operative Report Operative Date Sep 17, 2017. Pre-Operative Diagnosis Left knee degenerative joint disease Post-Operative Diagnosis Same Procedure(s) Performed Left Total Knee Arthroplasty Cemented utilizing Ruiz & Nephew journey 2 non-block size 6 femur 6 tibia 11 Sakshi [address] Yepez Beading Sawyer Surgeon(s) Dany Resendez PA-C Estimated Blood Loss 5ML Findings Patient presents after failing attempts at conservative management including physical therapy anti-inflammatories relative rest activity modification with severe end-stage tricompartmental degenerative joint disease patient presents for total knee arthroplasty after failing attempts at conservative management Specimens A. Left knee bone and tissue Complication(s) None Disposition Recovery Room / PACU Indications Severe end-stage DJD was subchondral sclerosis and marginal osteophytes cystic formation sclerosis bone to bone changes varus alignment large marginal osteophytes but medial lateral as well as patellofemoral Description of Procedure After proper prepping and draping of the left lower extremity anterior midline incision was made over the region of the extensor extensor mechanism after meticulous hemostasis was obtained and maintained in subcutaneous tissues a medial parapatellar incision was made The patella was subluxed lateralward the medial lateral gutter were cleaned from any hypertrophic synovitis and scar tissue of the distal femoral block was placed and the distal femoral osteotomy cut was made subsequently the chamfers anterior and posterior osteotomy cuts were made utilizing the 4-in-1 block the tibia was subsequently subluxed anteriorward medial and ateral meniscal remnants were excised in their entirety remnants of the anterior and posterior cruciate ligaments were excised in their entirety excellent exposure of the proximal tibia was obtained the tibial osteotomy guide was placed on the proximal tibial osteotomy cut was made once again the knee was irrigated with copious amounts of sterile saline solution the patella was subsequently everted lateralward thickened scar tissue around the patella was removed the patella was subsequently cut utilizing a freehand technique and was drilled prepared for final preparation and placement of patella socially flexion-extension gaps were checked and the equal and symmetric trials were placed to the appropriate femoral and tibial trials with poly-spacer being placed for equal flexion and extension gaps and full range of motion including extension to 0 and flexion to 140 the trial components after having been taken to recovery range of motion was subsequently removed meticulous hemostasis was obtained and maintained subsequently a knee block injection of joint cocktail including ropivacaine 0.5% 150 mg. Bupivacaine 0.5 % epinephrine 1-200,030 mL's toradol 30 mg dexamethasone 4 mg ketamine 10 mg clonidine 100 micrograms normal saline solution 30 mg was infiltrated into the soft tissues of the posterior knee medial lateral gutters and periosteal synovium special attention was paid to protect neurovascular structures at all times subsequently trial components having been removed the knee was irrigated with sterile saline solution. debris was removed the proximal tibia was subsequently prepared and was made ready for the placement of the tibial component tibial component was also cemented and tamped into position the femoral component was subsequently placed and cemented in the position the patellar component was subsequently cemented in position because hemostasis once again obtained and maintained wound having been thoroughly irrigated with debridement and debridement lavage was performed as well as a medial parapatellar incision closed with #1 Vicryl in interrupted fashion subcutaneous was closed with #2 Vicryl skin was closed with skin clips. PA-C was necessary for prepping and drapping as well as wound closure of deep fascia Sub cutaneous tissue and skin and was necessary for the case. A sterile compressive dressing was placed patient was taken to recovery in stable condition of report dictated by Lucho I attest to the content of the Intraoperative Record and any orders documented therein. Any exceptions are noted below. I attest to the content of the Intraoperative Record and any orders documented therein. Any exceptions are noted below.
[2017-09-17] MEDS ORDERED: MAGNESIUM HYDROXIDE SUSP 30 ML UDC PO PRN (09:00)
[2017-09-17] MEDS ORDERED: BISACODYL 10 MG SUPP PR PRN (09:00)
[2017-09-17] MEDS ORDERED: MoRPHine SULFATE 4 MG/ML 1 ML CARP\\VIAL IV PRN (09:00)
[2017-09-17] MEDS ORDERED: ALUMINUM/MAGNESIUM/SIMETH (MAALOX MAX) 30 ML UDC PO PRN (09:00)
[2017-09-17] MEDS ORDERED: MoRPHine SULFATE 2 MG/ML CARP IV PRN (09:00)
--- NOTE | 2017-09-17 09:19 | DIAGNOSTIC IMAGING REPORT ---
LEFT KNEE 2 VIEWS History: Left total knee arthroplasty. Degenerative arthritis. Postop. FINDINGS: The patient is status post a left total knee arthroplasty. The hardware is intact. No fracture or dislocation. Surgical drains are in place. IMPRESSION: Left total knee arthroplasty. No evidence for hardware complication. Electronically signed by: Rafal Glvoer M.D. 09/17/2017 9:18 AM Dictated Date/Time: 09/17/2017 9:17 AM
--- NOTE | 2017-09-17 09:35 | Anesthesiology Progress Note ---
Anesthesia Post Op Note Date & Time Sep 17, 2017 at 09:35 Vital Signs Pain Intensity: 0 Vital Signs Past 12 Hours Date Time Temp Pulse Resp B/P (MAP) Pulse Ox O2 Delivery O2 Flow Rate FiO2 09/17/17 09:21 64 10 09/17/17 09:21 64 10 98 09/17/17 09:21 36.8 66 16 126/69 (89) 98 Nasal Cannula 2 09/17/17 09:20 126/69 09/17/17 09:16 69 19 09/17/17 09:16 70 19 100 09/17/17 09:15 119/61 09/17/17 09:14 64 10 09/17/17 09:14 65 10 100 09/17/17 09:10 114/65 09/17/17 09:09 67 10 09/17/17 09:09 67 10 100 09/17/17 09:08 65 12 100 09/17/17 09:08 65 12 09/17/17 09:05 106/56 09/17/17 09:03 69 8 09/17/17 09:03 69 8 100 09/17/17 09:00 117/60 09/17/17 08:58 71 7 09/17/17 08:58 72 7 100 09/17/17 08:57 117/60 09/17/17 08:54 111/60 09/17/17 08:53 77 12 96 09/17/17 08:53 36.1 73 12 111/60 (81) 99 Oxymask 10 09/17/17 08:53 78 12 09/17/17 05:45 36.7 99 20 217/131 97 Room Air 197/97 Notes Mental Status: alert / awake / arousable, participated in evaluation Pt Amnestic to Procedure: Yes Nausea / Vomiting: adequately controlled Pain: adequately controlled Airway Patency, RR, SpO2: stable & adequate BP & HR: stable & adequate Hydration State: stable & adequate Neuraxial Anesthesia: was administered, sensory block is resolving Anesthetic Complications: no major complications apparent
[2017-09-17] MEDS: FERROUS GLUCONATE 324 MG TAB PO SCH ×2 (12:32→17:41)
[2017-09-17] MEDS: D5W AND 1/2NSS + 20MEQ KCL 1,000 ML IV SCH ×2 (12:32→21:27)
[2017-09-17] MEDS: ACETAMINOPHEN 500 MG TAB PO SCH ×2 (14:38→21:28)
[2017-09-17] MEDS: CLINDAMYCIN IV 600 MG in DEXTROSE 5% 50ML 50 ML IV SCH ×2 (16:04→23:55)
[2017-09-17] MEDS: ASPIRIN 81 MG ECTAB PO SCH (21:27)
[2017-09-17] MEDS: DOCUSATE SODIUM 100 MG CAP PO SCH (21:27)
[2017-09-17] MEDS: SENNA 8.6 MG TAB PO SCH (21:27)
[2017-09-18] MEDS: OXYCODONE HCL IR 5 MG TAB (IMMEDIATE RELEASE) PO PRN ×3 (00:56→20:00)
[2017-09-18 03:07] VITALS: BP 134/69; PULSE 72; TEMP 36.8; O2SAT 96
[2017-09-18] MEDS: LEVOTHYROXINE 75 MCG TAB PO SCH (05:08)
[2017-09-18] MEDS: D5W AND 1/2NSS + 20MEQ KCL 1,000 ML IV SCH (05:53)
[2017-09-18] MEDS: ACETAMINOPHEN 500 MG TAB PO SCH ×3 (05:53→20:53)
[2017-09-18 05:57] LABS: HEMATOCRIT 33.6 % (42-52); MEAN CORPUSCULAR HEMOGLOBIN 28.3 pg (25-34); MEAN CORPUSCULAR HGB CONC 32.1 g/dl (32-36); MEAN PLATELET VOLUME 10.1 fL (7.4-10.4); PLATELET COUNT 143 K/uL (130-400); RED BLOOD COUNT 3.82 M/uL (4.7-6.1); WHITE BLOOD COUNT 14.03 K/uL (4.8-10.8)
[2017-09-18 06:26] LABS: BUN/CREATININE RATIO 23.1 (10-20); CREATININE 0.75 mg/dl (0.60-1.40); POTASSIUM 4.3 mmol/L (3.5-5.1)
--- NOTE | 2017-09-18 07:33 | Orthopedic Progress Note ---
Orthopedic Progress Note Date of Service Sep 18, 2017. Subjective Post OP Day: 1 Additional Notes: c/o pain during the night. Does not like to take narcotics. State he has a pill at home that he takes on occasion that helps. Med Rec shows OxyIR which we discussed being a narcotic. He feels he is ok with taking this at this time. Also discussed the use of Tramadol that has been ordered for pain control. He feels he may try this instead. Objective calves soft nontender, N/V intact, dressing C/D/I, A&O x3, toes mobile, hemovac drainage (5ml latest shift) Date Time Temp Pulse Resp B/P (MAP) Pulse Ox O2 Delivery O2 Flow Rate FiO2 09/18/17 03:07 36.8 72 18 134/69 (90) 96 Room Air 09/17/17 23:50 Room Air 09/17/17 23:33 36.3 68 18 130/67 (88) 98 Room Air 09/17/17 20:31 36.4 61 17 156/81 (106) 99 Room Air 09/17/17 15:50 Room Air 09/17/17 15:06 36.3 59 16 120/70 (87) 98 Nasal Cannula 2.0 09/17/17 12:59 36.3 64 18 133/76 (95) 100 Nasal Cannula 2.0 09/17/17 11:49 36.1 61 18 117/66 (83) 100 Nasal Cannula 2.0 09/17/17 10:50 66 17 128/74 (92) 98 Nasal Cannula 2.0 09/17/17 10:22 36.1 69 16 134/79 (97) 98 Nasal Cannula 2.0 09/17/17 09:50 36.5 64 16 97 Nasal Cannula 2.0 09/17/17 09:50 Nasal Cannula 09/17/17 09:50 Room Air 09/17/17 09:40 114/66 09/17/17 09:37 65 10 95 09/17/17 09:37 65 10 09/17/17 09:35 110/58 09/17/17 09:32 66 8 98 09/17/17 09:32 62 8 09/17/17 09:30 118/59 09/17/17 09:27 63 9 98 09/17/17 09:27 63 9 09/17/17 09:25 112/60 09/17/17 09:22 65 9 09/17/17 09:22 65 9 98 09/17/17 09:21 64 10 09/17/17 09:21 64 10 98 09/17/17 09:21 36.8 66 16 126/69 (89) 98 Nasal Cannula 2 09/17/17 09:20 126/69 09/17/17 09:16 69 19 09/17/17 09:16 70 19 100 09/17/17 09:15 119/61 09/17/17 09:14 64 10 09/17/17 09:14 65 10 100 09/17/17 09:10 114/65 09/17/17 09:09 67 10 09/17/17 09:09 67 10 100 09/17/17 09:08 65 12 100 09/17/17 09:08 65 12 09/17/17 09:05 106/56 09/17/17 09:03 69 8 09/17/17 09:03 69 8 100 09/17/17 09:00 117/60 09/17/17 08:58 71 7 09/17/17 08:58 72 7 100 09/17/17 08:57 117/60 09/17/17 08:54 111/60 09/17/17 08:53 77 12 96 09/17/17 08:53 36.1 73 12 111/60 (81) 99 Oxymask 10 09/17/17 08:53 78 12 Laboratory Results 24 Hours: Test 09/18/17 05:44 Hematocrit 33.6 % Hemoglobin 10.8 g/dL Assessment & Plan Assessment: POD 1 s/p Left TKA Plan: PT/OT DVT proph - ASA bid DC plans uncertain Inhouse Planning Pain Management: Ultram, Morphine, PO Tylenol, Oxy IR DVT Prophylaxis: TEDs, SCDs, ASA
[2017-09-18 07:58] VITALS: BP 126/74; PULSE 70; TEMP 36.4; O2SAT 93
[2017-09-18 08:33] VITALS: O2SAT 93
[2017-09-18] MEDS: MULTIVITAMIN TAB PO SCH (09:45)
[2017-09-18] MEDS: DOCUSATE SODIUM 100 MG CAP PO SCH ×2 (09:45→20:52)
[2017-09-18] MEDS: FERROUS GLUCONATE 324 MG TAB PO SCH ×3 (09:45→17:59)
[2017-09-18] MEDS: ASPIRIN 81 MG ECTAB PO SCH ×2 (09:46→20:53)
[2017-09-18] MEDS: POTASSIUM CHLORIDE 20 MEQ TABCR PO SCH (09:46)
[2017-09-18] MEDS: PANTOprazole SOD 40 MG TAB PO SCH (09:46)
[2017-09-18] MEDS ORDERED: EPINEPHRINE ADULT AUTO-INJECT 0.3 MG SYR IM PRN (11:00)
[2017-09-18 12:06] VITALS: BP 128/76; PULSE 86; TEMP 36.6; O2SAT 94
[2017-09-18] MEDS: TRAMADOL HCL 50 MG TAB PO PRN ×2 (12:47→23:36)
[2017-09-18 16:15] VITALS: BP 145/80; PULSE 74; TEMP 36.6; O2SAT 100
[2017-09-18] MEDS: SENNA 8.6 MG TAB PO SCH (20:53)
[2017-09-18 23:25] VITALS: BP 176/83; PULSE 103; TEMP 36.6; O2SAT 97
[2017-09-19 03:42] VITALS: BP 148/79; PULSE 105
[2017-09-19] MEDS: LEVOTHYROXINE 75 MCG TAB PO SCH (05:59)
[2017-09-19] MEDS: ACETAMINOPHEN 500 MG TAB PO SCH ×3 (06:00→20:43)
[2017-09-19 06:57] VITALS: BP 148/82; PULSE 97; TEMP 36.6; O2SAT 93
--- NOTE | 2017-09-19 07:29 | Orthopedic Progress Note ---
Orthopedic Progress Note Date of Service Sep 19, 2017. Subjective Post OP Day: 2 Reports: feeling well, Denies: chest pain, SOB, nausea / vomiting, light headedness, calf pain Objective calves soft nontender, N/V intact, capillary refill less than 2 sec., incision C /D/I, A&O x3, toes mobile Date Time Temp Pulse Resp B/P (MAP) Pulse Ox O2 Delivery O2 Flow Rate FiO2 09/19/17 06:57 36.6 97 16 148/82 (104) 93 Room Air 09/19/17 03:42 105 148/79 (102) 09/18/17 23:25 36.6 103 18 176/83 (114) 97 Room Air 09/18/17 19:50 Room Air 09/18/17 16:15 36.6 74 17 145/80 (101) 100 Room Air 09/18/17 12:06 36.6 86 18 128/76 (93) 94 Room Air 09/18/17 08:33 93 Room Air 09/18/17 07:58 36.4 70 18 126/74 (91) 93 Room Air 09/18/17 07:35 Room Air Assessment & Plan Assessment: POD 2 s/p Left TKA Plan: PT/OT DVT proph - ASA bid DC PLANNING- REFERRAL TO [facility]. POSSIBLE BED ON SATURDAY. PAIN MANAGEMENT Inhouse Planning Pain Management: Ultram, Morphine, PO Tylenol, Oxy IR DVT Prophylaxis: TEDs, SCDs, ASA
[2017-09-19] MEDS: DOCUSATE SODIUM 100 MG CAP PO SCH ×2 (08:59→20:43)
[2017-09-19] MEDS: FERROUS GLUCONATE 324 MG TAB PO SCH ×3 (08:59→18:41)
[2017-09-19] MEDS: POTASSIUM CHLORIDE 20 MEQ TABCR PO SCH (09:00)
[2017-09-19] MEDS: PANTOprazole SOD 40 MG TAB PO SCH (09:00)
[2017-09-19] MEDS: MULTIVITAMIN TAB PO SCH (09:00)
[2017-09-19] MEDS: ASPIRIN 81 MG ECTAB PO SCH ×2 (09:00→20:43)
[2017-09-19 10:12] VITALS: BP 148/87; PULSE 91; O2SAT 96
--- NOTE | 2017-09-19 15:36 | Discharge Instructions ---
Discharge Instructions Date of Service Sep 19, 2017. Admission Reason for Admission: Left Knee Osteoarthritis Discharge Discharge Diagnosis / Problem: Left Knee Djd Discharge Goals Goal(s): Decrease discomfort, Improve function, Increase independence Activity Recommendations Activity Level: Assistance Required Therapies: Physical Therapy (TKA protocol), Occupational Therapy (ADL's and transfers) Weightbearing Status: Left weightbearing (as tolerated) . Additional Information Patient informed of condition: Yes Advance Directives: No DNR: No Level of Care: Skilled Communicable Disease: No Prognosis: Stable Boo Catheter: No Instructions / Follow-Up Instructions / Follow-Up ACTIVITY RECOMMENDATIONS: SELF CARE INSTRUCTIONS AFTER TOTAL KNEE REPLACEMENT A. You may need to continue a physical therapy program after discharge from the hospital. There are several options available to you. Your doctor will assist you in selecting the best one for you. 1. An out-patient facility 2 to 3 times a week for therapy or home therapy. 2. Continue working on all exercises taught to you in the hospital. Your goals should be to increase bending of your knee to 90 degrees and beyond and to fully straighten your knee. B. You may progress at your own pace from walking with a walker or crutches to a cane; then to no assistive devices. C. Make walking a part of your daily routine. Be up as much as comfortable with rest periods throughout the day. Rest with leg elevation is very important. Use the ice wrap frequently for the first 3-4 weeks. D. There are no restrictions on activities. You may ride in a car, shop, participate in lasting floorworker and all social activities. E. Wear the long elastic stockings (JOJO hose) 20 hours a day for 2 weeks after surgery. They can be removed several times a day for laundering and for a bath. F. You may shower, no tub baths until cleared by your doctor. SPECIAL CARE INSTRUCTIONS: VERY IMPORTANT TO READ AND REVIEW A. There are a few signs you need to watch for after you are home. Call [facility] if you notice any of the followin. Increased severe knee pain. Some pain is expected especially when you exercise. 2. Increased swelling in your leg or knee; pain or swelling of the calf muscle in either lower leg. 3. Any fluid drainage from the incision. 4. Shortness of breath or chest pain. B. Please call [facility] at if you have any concerns or questions about your operation or recovery. The doctor or his nurse will return your call promptly. C. You must take antibiotics before dental work, bladder, bowel or other surgery. Your doctor will provide you with a permanent care to carry describing this precaution. IMPORTANT: * REMEMBER TO TAKE ASPIRIN, 81 MG, TWICE DAILY FOR 4 WEEKS UNLESS OTHERWISE DIRECTED. THIS IS YOUR BLOOD THINNER. * HIGH RISK PATIENTS MAY BE PRESCRIBED A STRONGER BLOOD THINNER. THIS WILL BE PROVIDED AT DISCHARGE. * CALL IF INCREASED PAIN, REDNESS, DRAINAGE OR FEVER GREATER THAT 101. * WEAR JOJO HOSE 20 HOURS PER DAY FOR 2 WEEKS. * YOU WILL NEED TO CHANGE YOUR DRESSING DAILY. IF IT IS DRY, YOU CAN CHANGE IT EVERY DAY. YOU HAVE A ZIPLINE CLOSURE SYSTEM THAT WILL REMAIN ON FOR 14 DAYS. YOU MAY SHOWER. NO TUB BATHS. DO NOT SOAK THE WOUND. KEEP THE WOUND COVERED UNTIL SEEN BACK IN THE OFFICE. THIS WILL PREVENT YOUR CLOTHES FROM SNAGGING ON THE THE ZIPLINE. . FOLLOW UP VISIT: If appointment is not already scheduled: Please call [facility] to make a follow-up appointment for 2 weeks after your surgery at . Current Hospital Diet Patient's current hospital diet: Regular Diet Discharge Diet Recommended Diet: Regular Diet Procedures Procedures Performed: Left Total Knee Arthroplasty Cemented utilizing Ruiz & Nephew journey 2 non-block size 6 femur 6 tibia 11 Sakshi 35 oval patella Pending Studies Studies pending at discharge: no Physician Orders On Transfer Dressing Changes: DAILY Vital Signs: ROUTINE Medical Emergencies . Who to Call and When: Medical Emergencies: If at any time you feel your situation is an emergency, please call 911 immediately. . Non-Emergent Contact Non-Emergency issues call your: Surgeon Call Non-Emergent contact if: temperature is above 101.5, your pain is not controlled, your pain is worsening, wound has increased drainage, wound has increased redness . . "Provider Documentation" section prepared by Dany Resendez. . Core Measure Problem Core Measures: None [place] Drug Monitoring Program Search Results: patient reviewed within database, no issues identified
[2017-09-19] MEDS ORDERED: OXYC1TAB3 PO (15:39)
[2017-09-19] MEDS ORDERED: MOMLX PO (15:39)
[2017-09-19] MEDS ORDERED: PRT40 PO (15:39)
[2017-09-19] MEDS ORDERED: ASPI81TA28 PO (15:39)
[2017-09-19] MEDS ORDERED: ACET-24 PO (15:39)
[2017-09-19] MEDS ORDERED: CLC100 PO (15:39)
[2017-09-19 15:40] VITALS: BP 125/75; PULSE 63; TEMP 36.6; O2SAT 94
[2017-09-19] MEDS: SENNA 8.6 MG TAB PO SCH (20:43)
[2017-09-19 23:26] VITALS: BP 153/79; PULSE 86; TEMP 36.6; O2SAT 93
[2017-09-20] MEDS: ACETAMINOPHEN 500 MG TAB PO SCH ×2 (05:48→13:55)
[2017-09-20] MEDS: LEVOTHYROXINE 75 MCG TAB PO SCH (05:48)
--- NOTE | 2017-09-20 06:52 | Orthopedic Progress Note ---
Orthopedic Progress Note Date of Service Sep 20, 2017. Subjective Post OP Day: 3 Reports: feeling well, Denies: complaints Objective calves soft nontender, N/V intact, incision C/D/I, A&O x3, toes mobile Date Time Temp Pulse Resp B/P (MAP) Pulse Ox O2 Delivery O2 Flow Rate FiO2 09/19/17 23:30 Room Air 09/19/17 23:26 36.6 86 16 153/79 (103) 93 Room Air 09/19/17 15:40 36.6 63 16 125/75 (92) 94 Room Air 09/19/17 15:15 Room Air 09/19/17 10:12 91 96 09/19/17 09:00 Room Air 09/19/17 06:57 36.6 97 16 148/82 (104) 93 Room Air Assessment & Plan Assessment: POD 3 s/p Left TKA Plan: PT/OT DVT proph - ASA bid DC PLANNING- DC TO [facility] TODAY PAIN MANAGEMENT Inhouse Planning Pain Management: Ultram, Morphine, PO Tylenol, Oxy IR DVT Prophylaxis: TEDs, SCDs, ASA
[2017-09-20 07:45] VITALS: BP 158/82; PULSE 84; TEMP 36.5; O2SAT 95
[2017-09-20] MEDS: FERROUS GLUCONATE 324 MG TAB PO SCH ×2 (08:33→12:42)
[2017-09-20] MEDS: TRAMADOL HCL 50 MG TAB PO PRN (08:33)
[2017-09-20] MEDS: POTASSIUM CHLORIDE 20 MEQ TABCR PO SCH (08:34)
[2017-09-20] MEDS: DOCUSATE SODIUM 100 MG CAP PO SCH (08:34)
[2017-09-20] MEDS: ASPIRIN 81 MG ECTAB PO SCH (08:34)
[2017-09-20] MEDS: MULTIVITAMIN TAB PO SCH (08:35)
[2017-09-20] MEDS: PANTOprazole SOD 40 MG TAB PO SCH (08:35)
[2017-09-20 08:55] VITALS: O2SAT 95
[2017-09-20 11:07] VITALS: BP 147/82; PULSE 90; O2SAT 98
[2017-09-20 11:41] VITALS: BP 152/84; PULSE 94; TEMP 36.7; O2SAT 98
[2017-09-20 13:01] VITALS: BP 152/84; PULSE 94; TEMP 36.7; O2SAT 98
--- NOTE | 2017-09-23 12:49 | DISCHARGE SUMMARY ---
DISCHARGE DIAGNOSIS: Degenerative joint disease, left knee. SECONDARY DIAGNOSES: Asthma, colitis, hypercholesterolemia, hypothyroidism, and prostate carcinoma. CONSULTS: None. COMPLICATIONS: None. PROCEDURES: Left total knee arthroplasty performed by Dr. Yepez on 09/17/2017. BRIEF HISTORY: As dictated in the history and physical. HOSPITAL SUMMARY: The patient was admitted on the above date and had the above-noted surgery performed, which he tolerated well. On his first postoperative day, he was complaining of pain that he had during the night, but he was not taking his narcotics regularly because he did not like them. We discussed the fact that he was taking oxycodone at home, of which he then agreed to take here and also discussed use of a tramadol. Calves were soft and nontender, neurovascularly intact. Dressings clean, dry and intact. Toes were mobile. Vital signs were stable. He was afebrile. Hemoglobin was 10.8 and he was started on physical therapy protocol and continued on DVT prophylaxis and pain management. By his second postoperative day, he was feeling well and had no complaints. Calves were soft and nontender, neurovascularly intact. Incision was benign. Toes were mobile. Vital signs were stable. He was afebrile. He was planning on fdc facility and would need a 3-day stay. So, he was continued on his protocol and remaining stable. By 09/20/2017, he was feeling well and had no complaints. Incision was benign. Toes were mobile. Calves were soft and nontender. Neurovascularly was intact and it was felt he could be discharged to [facility] for further physical therapy and care on 09/20/2017. For further review, please see chart. LAB AND X-RAY DATA: As per chart. DISCHARGE INSTRUCTIONS: The patient was discharged to [facility] on 09/20/2017. DIET: Regular. ACTIVITY: Weightbearing as tolerated in the left lower extremity. The patient is to have PT and OT protocols for TKA. The patient is to have assistance if required. Follow TK instruction sheets and special care instructions as noted. Follow up with Dr. Yepez in 2 weeks. The patient is to call for an appointment if one has not been made for you. DISCHARGE MEDICATIONS: Acetaminophen 1000 mg p.o. q. 8 hours for 21 days, Colace 100 mg p.o. b.i.d., milk of magnesia 30 mL p.o. q. 6 hours p.r.n. for 10 days, pantoprazole 40 mg p.o. q.a.m. for 10 days, aspirin 81 mg p.o. b.i.d. for 30 days and then resume once daily dosing, and oxycodone 5-10 mg p.o. q. 4 hours p.r.n. severe pain and resume home meds as listed and discharge instructions.
== END 2017-09-20 15:46 | DRG 470 ==
LOC: C.ACU 05:09 → C.3E 06:30 → ENRESERV 09:19
PROVIDERS: ADMIT Orthopaedic Surgery; ATTEND Orthopaedic Surgery
PROC: 0SRD0J9 Replacement of Left Knee Joint with Synthetic Substitute, Cemented, Open Approach (ICD-10-PCS; principal; 2017-09-17 07:15)
DX: M17.12 Unilateral primary osteoarthritis, left knee (principal); E03.9 Hypothyroidism, unspecified; Z96.651 Presence of right artificial knee joint; Z96.641 Presence of right artificial hip joint; Z86.718 Personal history of other venous thrombosis and embolism; Z85.46 Personal history of malignant neoplasm of prostate; Z92.3 Personal history of irradiation; Z79.82 Long term (current) use of aspirin; Z88.0 Allergy status to penicillin; Z88.2 Allergy status to sulfonamides; Z88.6 Allergy status to analgesic agent